=== PATIENT | female | born 1995 | race Two or more races ===

== ENCOUNTER 2019-06-10 21:59 | Emergency (ER) | payer SELFPAY ==
[~2019-06-10] VITALS: Ht 149.9 cm; Wt 59.1 kg
[2019-06-10] MEDS ORDERED: SODIUM CHLORIDE 0.9% 1,000ML IVBOLUS ONE (23:30)
[2019-06-10] MEDS ORDERED: PROMETHAZINE 25 MG/ML, 1ML IM ONE (23:30)
[2019-06-10] MEDS ORDERED: SODIUM CHLORIDE FLUSH 10ML SYR IVF ONE (23:30)
[2019-06-10] MEDS ORDERED: ONDANSETRON 2MG/ML, 2ML IVPush ONE (23:30)
[2019-06-10] MEDS ORDERED: PROMETHAZINE 25 MG/ML, 1ML ONE (23:34)
[2019-06-10] MEDS ORDERED: ONDANSETRON 2MG/ML, 2ML ONE (23:35)
[2019-06-10 23:42] LABS: BASOPHILS # (AUTO) 0.11 x10^3/uL (0-0.1); BASOPHILS % (AUTO) 1 % (0-1); EOSINOPHILS # (AUTO) 0.21 x10^3/uL (0-0.4); EOSINOPHILS % (AUTO) 3 % (1-7); LYMPHOCYTES # (AUTO) 3.06 x10^3/uL (1-3.4); LYMPHOCYTES % (AUTO) 37 % (22-44); MD NO; MEAN CORPUSCULAR HEMOGLOBIN 30.9 pg (27.0-34.8); MEAN CORPUSCULAR HGB CONC 34.2 g/dL (32.4-35.8); MEAN CORPUSCULAR VOLUME 90.3 fL (80-100); MEAN PLATELET VOLUME 8.2 fL (7.4-10.4); MONOCYTES # (AUTO) 0.74 x10^3/uL (0.2-0.8); MONOCYTES % (AUTO) 9 % (2-9); NEUTROPHILS # (AUTO) 4.15 x10^3/uL (1.8-6.8); NEUTROPHILS % (AUTO) 50 % (42-75); PLATELET COUNT 359 x10^3/uL (130-400); RED BLOOD COUNT 4.38 x10^6/uL (3.82-5.3)
--- NOTE | 2019-06-10 23:49 | NUR ---
DR YAO AT FOR PT HISTORY AND ASSESSMENT. IV ACCESS ESTABLISHED AND PT MEDICATED PER JUN. PT HAS CALL LIGHT WITHIN REACH AT THIS TIME.
[2019-06-10 23:50] LABS: ALBUMIN 3.8 g/dL (3.4-5.0); ANION GAP 8 mmol/L (5-15); CHLORIDE 106 mmol/L (98-107); CREATININE 0.59 mg/dL (0.55-1.02)
--- NOTE | 2019-06-11 00:16 | NUR ---
PT RETURNED TO ROOM FROM [facility] VIA [facility] AT THIS TIME.
[2019-06-11 00:31] LABS: CULTURE INDICATED? YES; MICROSCOPIC INDICATED
[2019-06-11 00:58] VITALS: BP 105/64
--- NOTE | 2019-06-11 01:27 | NUR ---
PT D/C WITH D/C SUMMARY AND SCRIPTS. ALL QUESTIONS ANSWERED. PT AMBULATES TO REGISTRATION DESK WITH STEADY GAIT FOR D/C HOME. PT DENIES ANY OTHER NEEDS PERTAINING TO THIS VISIT. PT D/C IN CARE OF SPOUSE TO TRANSPORT PT HOME. PT IV D/C WITH TIP INTACT.
--- NOTE | 2019-06-13 08:53 | NUR ---
MICRO CALLED TO NOTIFY THAT PT'S URINE TESTED POSITIVE FOR E COLI ESBL.
== END 2019-06-11 01:37 | disposition home or self-care (01) ==
LOC: ED 06-11
DX: O20.0 Threatened abortion (principal); O23.11 Infections of bladder in pregnancy, first trimester; E86.0 Dehydration; R11.2 Nausea with vomiting, unspecified; G43.909 Migraine, unspecified, not intractable, without status migrainosus; Z3A.08 8 weeks gestation of pregnancy
CPT/HCPCS: 36415; 76801; 80048; 81001; 82040; 84702; 85025; 86901; 87077; 87086; 96361; 96372; 96374; 99284; J2405; J2550; J7030; 87186